=== PATIENT | female | born 2000 | race Hispanic/Latino ===

== ENCOUNTER 2019-12-31 21:44 | Emergency (ER) | payer MEDICAID, OTHER ==
[2019-12-31 22:49] LABS: RAPID GROUP A STREP NEGATIVE (NEGATIVE)
[2019-12-31] MEDS ORDERED: AMOXICILLIN 500 MG CAPSULE PO ONE (22:54)
== END 2019-12-31 23:03 | disposition home or self-care (01) ==
LOC: EDH 21:44
DX: J02.9 Acute pharyngitis, unspecified (principal); R51 Headache
CPT/HCPCS: 87804; 87880